=== PATIENT | female | born 1995 | race Caucasian/White ===

== ENCOUNTER 2024-04-11 15:53 | Emergency (ER) | payer BC, OTHER ==
[~2024-04-11] VITALS: Ht 180.3 cm; Wt 87.5 kg
[2024-04-11 15:57] VITALS: TEMP 98
[2024-04-11] MEDS ORDERED: BUPR100T13 PO (17:35)
[2024-04-11] MEDS ORDERED: ESCI5TAB PO (17:35)
[2024-04-11 17:45] VITALS: BP 140/88; PULSE 90; RESP 16; O2SAT 95
== END 2024-04-11 17:47 | disposition home or self-care (01) ==
LOC: ER 15:54
DX: Z00.00 Encounter for general adult medical examination without abnormal findings (principal); Z76.0 Encounter for issue of repeat prescription; Z87.440 Personal history of urinary (tract) infections; Z72.89 Other problems related to lifestyle
CPT/HCPCS: 99281

== ENCOUNTER 2024-04-22 16:25 | Emergency (ER) | payer BC ==
[~2024-04-22] VITALS: Ht 180.3 cm; Wt 86.3 kg
[~2024-04-22 16:25] MED LIST: BUPR100T13 PO; ESCI5TAB PO
[2024-04-22 16:27] VITALS: BP 138/89; PULSE 98; TEMP 97.7; O2SAT 97
[2024-04-22] MEDS ORDERED: BUPR300T53 PO (17:22)
[2024-04-22] MEDS ORDERED: ESCI20TA PO (17:22)
[2024-04-22 17:34] VITALS: RESP 16
== END 2024-04-22 17:34 | disposition home or self-care (01) ==
LOC: ER 16:25
DX: F32.A Depression, unspecified (principal); Z76.0 Encounter for issue of repeat prescription; Z79.899 Other long term (current) drug therapy; Z72.89 Other problems related to lifestyle
CPT/HCPCS: 99281

== ENCOUNTER 2024-05-27 15:27 | Emergency (ER) | payer BC ==
[~2024-05-27 15:27] MED LIST changes: +BUPR300T53 PO; +ESCI20TA PO; -ESCI5TAB PO
== END 2024-05-27 16:50 | disposition left against medical advice (07) ==
LOC: ER 15:27
DX: Z00.00 Encounter for general adult medical examination without abnormal findings (principal); Z53.21 Procedure and treatment not carried out due to patient leaving prior to being seen by health care provider

== ENCOUNTER 2024-05-28 18:40 | Emergency (ER) | payer BC ==
[~2024-05-28] VITALS: Ht 177.8 cm; Wt 88.7 kg
[2024-05-28 18:55] VITALS: BP 128/78; PULSE 94; RESP 14; O2SAT 97
[2024-05-28 20:30] VITALS: TEMP 98.6
== END 2024-05-28 20:31 | disposition home or self-care (01) ==
LOC: ER 18:40
DX: F32.A Depression, unspecified (principal); Z76.0 Encounter for issue of repeat prescription; Z79.899 Other long term (current) drug therapy; Z72.89 Other problems related to lifestyle
CPT/HCPCS: 99281